=== PATIENT | female | born 1985 | race Caucasian/White ===

== ENCOUNTER 2020-01-30 07:48 | Outpatient (CLI) | payer BC, SELFPAY | END 2020-01-30 07:49 | disposition home or self-care (01) | LOC: LAB 07:52 | PROVIDERS: Family Provider Family Medicine; Visit Provider Family Medicine | DX: O26.851 Spotting complicating pregnancy, first trimester (principal) | CPT/HCPCS: 84702 ==

== ENCOUNTER 2020-10-29 18:33 | Emergency (ER) | payer BC, SELFPAY ==
--- NOTE | 2020-10-29 18:43 | XRR_ITS ---
PROCEDURE INFORMATION: Exam: XR Right Hand Exam date and time: 10/29/2020 6:43 PM Age: 35 years old Clinical indication: Injury or trauma; Other: Sport injury; Blunt trauma (contusions or hematomas); Right; Little finger; Injury details: PT was hit with a ball; Additional info: Hand/ 5th digit injury TECHNIQUE: Imaging protocol: XR Right hand. Views: 3 or more views. COMPARISON: No relevant prior studies available. FINDINGS: Bones/joints: There is posterior dislocation right 5th PIP. No fracture is identified. Soft tissues: Mild swelling XR/XR hand RT min 3V* [id number] IMPRESSION: Posterior dislocation right 5th PIP
[2020-10-29 18:55] VITALS: BP 118/74; PULSE 66; RESP 16; TEMP 36.9; O2SAT 97; BMI 31.1
--- NOTE | 2020-10-29 20:13 | W.ED.EXTPRO ---
HPI - Extremity Problem General: Chief complaint: Extremity Injury, Upper Stated complaint: Right Pinky Finger Broken Time Seen by Provider: 10/29/20 20:13 History of Present Illness: HPI Narrative: Patient is a 35-year-old female comes to the ED with right hand injury. Injury occurred just prior to arrival. She was catching a soccer ball and jammed her fifth digit. She reports a deformity but had finger splinted before coming to the ED. Associated symptoms: Deny chest pain, fever(s) or rash Review of Systems Const: Denies: fever(s), chills or fatigue Eyes: Denies: change in vision or eye discomfort ENMT: Denies: throat pain, odynophagia, nasal discharge or nasal congestion Card: Denies: chest pain, palpitations, edema, swelling of feet/ankles, dyspnea on exertion or orthopnea Resp: Denies: dyspnea, productive cough or non-productive cough GI: Denies: abdominal pain, nausea, vomiting, diarrhea, constipation or hematochezia : Denies: flank pain, dysuria or hematuria Musc: Reports: extremity pain (Right hand fifth digit) and deformity (Right hand fifth digit-PIP joint dislocation); Denies: neck pain, back pain or extremity swelling Skin/Breast: Denies: rash or new lesions Neuro: Denies: headache(s), numbness in extremities or weakness in extremities [facility] ED Female Reproductive History: Date of last menstrual period: 10/02/20 Physical Exam Const: COMMON NORMALS: no acute distress, patient oriented x3, healthy appearing and alert HENMT: COMMON NORMALS: normocephalic HEAD & SCALP: normocephalic MOUTH: Normal oral and palatal mucosa present THROAT: posterior oropharynx normal and uvula midline Neck/C-Spine: COMMON NORMALS: supple GENERAL: Yes normal visual inspection Resp: COMMON NORMALS: normal respiratory effort, No retractions, No use of accessory muscles and clear to auscultation bilaterally AUSCULTATION: clear to auscultation bilaterally Cardio: COMMON NORMALS: regular rate, regular rhythm, S1 normal heart sound present, S2 normal heart sound present, No gallops present (Cardio), No clicks present (Cardio), No murmurs present (Cardio) and Peripheral pulses 2+ throughout RATE: regular rate RHYTHM: regular rhythm HEART SOUNDS: S1 normal heart sound present and S2 normal heart sound present PERIPHERAL PULSES: Peripheral pulses 2+ throughout GI: COMMON NORMALS: Normal to inspection, nondistended, normoactive bowel sounds present, Soft to palpation, non-tender and no masses PALPATION: Yes Soft to palpation : COMMON NORMALS: Yes no CVA tenderness BLADDER/KIDNEY EXAM: Yes no CVA tenderness Back/Pelvis: COMMON NORMALS: no CVA tenderness Extremity: RIGHT UPPER EXTREMITY: Yes hand & digits Right hand and digits: Yes inspection (Visible PIP joint deformity of fifth digit.), Yes palpation (Tender to palpation-left digit), Yes ROM exam (Fifth digit-limited due to pain) and Yes neurovascular exam (intact) Neuro: COMMON NORMALS: patient oriented x3 and moves all extremities SENSORIUM/ORIENTATION: Yes alert Skin: GENERAL SKIN EXAM: dry skin Procedures Nerve Block Nerve Block 1: Time out performed: Yes Local Anesthetic: lidocaine 2% Amount of anesthesia used (mL): 10 Side: right Nerve Blocks: digital (5th digit) Procedure Successful: Yes Patient Tolerated Procedure: well Complications: none Orthopedic Joint Reduction Joint #1: Time Out Performed: Yes Side: right Joint Reduction Location: finger (5th digit-posterior PIP joint displacement) Analgesia: nerve block (with lidocaine 2%) Technique used: traction/counter-traction Post-reduction neuro exam: intact Post-reduction vascular: intact Post Reduction X-Ray Obtained: Yes Post Reduction X-Ray Results: reduced Splint Applied: Yes Patient Tolerated Procedure: well Course Vital Signs: Vital signs: Vital Signs Temperature 98.5 F 10/29/20 21:37 Pulse Rate 62 10/29/20 21:37 Respiratory Rate 16 10/29/20 21:37 Blood Pressure 134/68 10/29/20 21:37 Pulse Oximetry 97 10/29/20 21:37 MDM - Extremity (Nontraumatic) MDM Narrative: Medical decision making narrative: Patient is a 35-year-old female comes to the ED with a dislocated right fifth digit at the PIP joint. X-ray confirmed dislocation of the right fifth PIP joint. Lidocaine 2% was used as nerve block on fifth digit and then dislocation was reduced successfully and post reduction x-rays were performed and it showed a successful reduction.'s finger splint was applied on patient. She was told to follow-up with her PCP at her next scheduled appointment in 2 weeks. She was told to continue wearing her finger splint and limit activity with left hand until she sees her PCP for reevaluation. Return to ED precautions given. Patient understood and agree with plan. Imaging Data^: Xray Ortho: Attestation: I personally reviewed and interpreted this imaging study as follows: Radiologist's impression: Hasmukh Naik[address] [facility].[place], [place] [address]BXyx ReportSigned Patient: Lora Hawk #: [id number]: 1985Acct#:[id number]/Sex: 35 / FADM Date: 10/29/20Loc: ERRoom/Bed:Attending Dr: Ordering Provider/Ordering MD: Red Bajwa Date of Service: 10/29/20 Procedure(s): XR hand RT min 3V* [id number] Accession Number(s): [id number] Report Number: [id number] PROCEDURE INFORMATION: Exam: XR Right Hand Exam date and time: 10/29/2020 6:43 PM Age: 35 years old Clinical indication: Injury or trauma; Other: Sport injury; Blunt trauma (contusions or hematomas); Right; Little finger; Injury details: PT was hit with a ball; Additional info: Hand/ 5th digit injury TECHNIQUE: Imaging protocol: XR Right hand. Views: 3 or more views. COMPARISON: No relevant prior studies available. FINDINGS: Bones/joints: There is posterior dislocation right 5th PIP. No fracture is identified. Soft tissues: Mild swelling XR/XR hand RT min 3V* [id number] IMPRESSION: Posterior dislocation right 5th PIP Dictated By:Ismael Solomonigned By:Yolis Solomon Date/Time:10/29/203DD/ 21 Discharge Plan Discharge Patient Disposition: Home Clinical Impression: Dislocation of finger PIP joint Qualifiers: Encounter type: initial encounter Qualified Code(s): S63.289A - Dislocation of proximal interphalangeal joint of unspecified finger, initial encounter Condition: Stable Discharge Orders: Discharge ED (Routine); Ordered 10/29/20 Ordered By: Red Bajwa Discharge Diet: Regular Discharge Activity: Limit activity as instructed Patient Instructions: Finger Dislocation (ED) Activity Restrictions/Additional Instructions: Follow-up with medical provider at your next scheduled appointment in a couple weeks. Wear finger splint until evaluated by your PCP. Take [id number] Tylenol or Motrin for pain. Return to the ER or your medical provider if condition worsens. Please read and understand discharge instructions. Thank you for choosing [facility] for your healthcare needs today. Please realize this is an emergency room and that we are providing you with a medical screening exam and this may not be complete and all inclusive of all the testing and or work up that you may need to determine your ailment or severity of your illness. It is very important that you follow up as instructed or that you return to the Emergency Department should you have concerns or if your condition changes or worsens in any way. Coding Level of Care Code ED Tumbler Operator for Funmilayo Soria Exam Comprehensive
[2020-10-29 20:17] VITALS: BP 134/68; PULSE 62; RESP 16; TEMP 36.9; O2SAT 97
--- NOTE | 2020-10-29 20:33 | XRR_ITS ---
PROCEDURE INFORMATION: Exam: XR Right Hand Exam date and time: 10/29/2020 8:33 PM Age: 35 years old Clinical indication: Pain; Hand; Right; Additional info: Post reduction TECHNIQUE: Imaging protocol: XR Right hand. Views: 1 or 2 views. COMPARISON: CR (UP EXM, ) 10/29/2020 6:51 PM FINDINGS: Bones/joints: Normal. Previously noted dislocation has been reduced Soft tissues: Normal. XR/XR hand RT 2V [id number] IMPRESSION: No acute findings.
[2020-10-29 21:37] VITALS: BP 134/68; PULSE 62; RESP 16; TEMP 36.9; O2SAT 97
== END 2020-10-29 21:31 | disposition home or self-care (01) ==
PROVIDERS: Emergency Provider Physician Assistant
DX: S63.289A Dislocation of proximal interphalangeal joint of unspecified finger, initial encounter (principal); W21.02XA Struck by soccer ball, initial encounter
CPT/HCPCS: 26770; 73120; 73130; 99282

== ENCOUNTER 2021-09-03 10:38 | Emergency (ER) | payer BC, SELFPAY ==
[2021-09-03 10:50] VITALS: BP 133/76; PULSE 97; RESP 18; TEMP 36.7; O2SAT 100; BMI 31.1
--- NOTE | 2021-09-03 10:58 | US_ITS ---
WS: [id number] EARLY OBSTETRICAL ULTRASOUND (<14 WEEKS). HISTORY: vaginal bleeding COMPARISON: None available. Transvaginal imaging is performed. There is mildly thickened appearance of the endometrium with a sma ll cystic area in the central canal. If this is a gestational sac the measurement corresponds to a ge station of 5 weeks and 3 days. No cardiac activity identified. There is a tiny soft tissue focus with in the fluid which could be an early crown-rump length. Cervix is closed. No free fluid. The LEFT ovary measures 3.0 x 2.3 x 1.8 cm. RIGHT ovary measures 2.9 x 1.6 x 2.5 cm. No adnexal mass otherwise. US/US OB <=14 wk fetus w transvag IMPRESSION: 1. Mild endometrial thickening with a small fluid collection along the endomet rial canal which could potentially represent a very early intrauterine gestatio n. At this time cannot confirm intrauterine gestation. Recommend 7-10 day trans vaginal ultrasound follow-up. 2. No adnexal mass or free fluid. 3. If there is a positive beta hCG ectopic cannot be excluded.
--- NOTE | 2021-09-03 11:10 | ED_ITS ---
HPI - General Adult General: Chief complaint: Vaginal Bleeding Stated complaint: 7 weeks abd pian/bleeding Time Seen by Provider: 09/03/21 10:57 History of Present Illness: Patient is a 36-year-old female at 7 weeks and 3 days by ultrasound on 08/27/2021 presenting to the emergency with complaints of persistent vaginal bleeding and dysuria symptom with flank pain. Patient tells me that since 08/21, she has been having vaginal spotting has now worsened. On 08/27/2021, patient had a viable . At that time, patient was also diagnosed with urinary tract infection. Patient has been taking Keflex twice daily for 5 days now. Patient now reports bilateral flank pain but denies any nausea/vomiting fever/chills. Patient denies any abdominal complaints, pelvic contractions, cough, runny nose, or sore throat. Onset:08/21/2021 Duration:ongoing Location:home Severity:moderate Associated symptoms: Deny chest pain, dyspnea, nausea, rash, palpitations or vomiting Review of Systems Const: Denies: fever(s) or chills Eyes: Denies: change in vision ENMT: Denies: mouth pain Card: Denies: chest pain or palpitations Resp: Denies: dyspnea or non-productive cough GI: Denies: abdominal pain, nausea, vomiting or diarrhea : Reports: flank pain (+b/l flank pain), dysuria and other (+vaginal bleeding) Musc: Denies: extremity pain Skin/Breast: Denies: rash or new lesions Neuro: Denies: weakness in extremities Psych: Reports: other (Normal mood) Shaq/Lymph: Denies: easy bruising PFSH ED PFSH: Medical History Social History Smoking and tobacco status: never smoked Alcohol intake: never Substance/Drug Use: never Female Reproductive History: Date of last menstrual period: 10/02/20 Physical Exam Const: COMMON NORMALS: alert HENMT: COMMON NORMALS: atraumatic HEAD & SCALP: atraumatic MOUTH: moist mucous membranes not abnormal Eye: COMMON NORMALS: EOMs intact bilaterally and conjunctivae normal CONJUNCTIVA: Yes conjunctivae normal Neck/C-Spine: COMMON NORMALS: full ROM and supple Resp: COMMON NORMALS: normal respiratory effort and clear to auscultation bilaterally AUSCULTATION: clear to auscultation bilaterally Cardio: COMMON NORMALS: regular rate RATE: regular rate GI: COMMON NORMALS: Soft to palpation and non-tender PALPATION: Yes Soft to palpation OTHER: No focal TTP. NO guarding rebound, guarding, rigidity. No CVA tenderness to percussion. Neg Cline/Neg McBurney's point tenderness, no suprabupic tenderness to palpation. Extremity: COMMON NORMALS: full ROM Neuro: SENSORIUM/ORIENTATION: Yes alert MOTOR EXAM: No Abnormal motor st rength present and Other motor observations present (no focal motor deficits) Psych: COMMON NORMALS: speech normal SPEECH: Yes normal speech MOOD & AFFECT: Yes euthymic mood Course Vital Signs: Vital signs: Vital Signs Temperature 98.1 F 09/03/21 10:50 Pulse Rate 97 09/03/21 10:50 Respiratory Rate 18 09/03/21 10:50 Blood Pressure 133/76 09/03/21 10:50 Pulse Oximetry 100 09/03/21 10:50 MDM - General Adult Medical Decision Making 36-year-old female at 7 weeks and 3 days presenting to the emergency room for evaluation of vaginal bleeding and dysuria with bilateral flank pain. On exam, patient is hemodynamically stable, afebrile. Patient has no CVA tender ness bilaterally. No suprapubic tenderness. Beta-hCG of 1800. Ultrasound showed early at this time with recommendation for close follow-up in 7 to 10 days. In the setting of vaginal bleeding, this is likely threatened miscarriage. UA is negative for any signs of UTI. Do not suspect pyelonephritis given negative urine, patient is afebrile, no leukocytosis currently. Rx: tylenol PRN pain Disposition: Discharge. Patient counseled regarding diagnostic impression, treatment plan. Patient given ED strict return precautions to return for continuation, worsening, or development of new symptoms. Instructed to f/u w/ OB regarding symptoms today. Patient verbalized understanding. Lab Data : 09/03/21 11:18 09/03/21 11:18 Radiology Impressions Obstetrics Ultrasound 09/03/21 10:58 IMPRESSION: 1. Mild endometrial thickening with a small fluid collection along the endometrial canal which could potentially represent a very early intrauterine gestation. At this time cannot confirm intrauterine gestation. Recommend 7-10 day transvaginal ultrasound follow-up. 2. No adnexal mass or free fluid. 3. If there is a positive beta hCG ectopic cannot be excluded. Laboratory Results WBC 8.1 10^3/uL (4.0-10.0) 09/03/21 11:18 RBC 5.03 10^6/uL (4.1-5.3) 09/03/21 11:18 Hgb 15.0 g/dL (11.5-15.3) 09/03/21 11:18 Hct 44.0 % (37.0-47.0) 09/03/21 11:18 MCV 87.5 fl (81-99) 09/03/21 11:18 MCH 29.8 pg (28.0-34.0) 09/03/21 11:18 MCHC 34.1 g/dL (30.0-36.0) 09/03/21 11:18 RDW 11.8 % (12.1-15.1) L 09/03/21 11:18 Plt Count 211 10^3/cmm (130-400) 09/03/21 11:18 MPV 9.9 fL (7.4-10.4) 09/03/21 11:18 Neut % (Auto) 73.3 % 09/03/21 11:18 Lymph % (Auto) 19.4 % 09/03/21 11:18 [place]ock[place] % (Auto) 5.8 % 09/03/21 11:18 Eos % (Auto) 0.6 % 09/03/21 11:18 Baso % (Auto) 0.2 % 09/03/21 11:18 Neut # (Auto) 5.89 10^3/uL (1.8-7.7) 09/03/21 11:18 Lymph # (Auto) 1.6 10^3/uL (0.8-4.8) 09/03/21 11:18 [place] # (Auto) 0.5 10^3/uL (0.2-0.9) 09/03/21 11:18 Eos # (Auto) 0.1 10^3/uL (0.0-0.8) 09/03/21 11:18 Baso # (Auto) 0.0 10^3/uL (0.0-0.1) 09/03/21 11:18 Nucleated RBC % (auto) 0 % 09/03/21 11:18 Nucleated RBCs # 0.0 /100WBC 09/03/21 11:18 Sodium 138 mmol/L (136-145) 09/03/21 11:18 Potassium 3.8 mmol/L (3.5-5.1) 09/03/21 11:18 Chloride 100 mmol/L (98-107) 09/03/21 11:18 Carbon Dioxide 25 mmol/L (22-29) 09/03/21 11:18 Anion Gap 16.8 (5-19) 09/03/21 11:18 BUN 13 mg/dL (6-20) 09/03/21 11:18 Creatinine 0.7 mg/dL (0.5-0.9) 09/03/21 11:18 GFR Calculation 95.2 mL/min (90-130) 09/03/21 11:18 Glucose 89 mg/dL (65-115) 09/03/21 11:18 Calculated Osmolality 286 mOsm/kg (285-295) 09/03/21 11:18 Calcium 9.5 mg/dL (8.5-10.5) 09/03/21 11:18 Total Bilirubin 0.8 mg/dL (0.15-1.2) 09/03/21 11:18 AST 13 U/L (0-32) 09/03/21 11:18 ALT 17 U/L (0-33) 09/03/21 11:18 Alkaline Phosphatase 72 IU/L (35-105) 09/03/21 11:18 Total Protein 7.6 g/dL (6.6-8.7) 09/03/21 11:18 Albumin 4.6 g/dL (3.5-5.2) 09/03/21 11:18 Globulin 3.0 g/dL (1.3-4.6) 09/03/21 11:18 Lipase 21 U/L (13-60) 09/03/21 11:18 Ser , Semi-Qnt 1805.00 mIU/mL 09/03/21 11:18 Urine Color Regina (Yellow) 09/03/21 11:24 Urine Appearance Turbid (CLEAR) 09/03/21 11:24 Urine pH 6 (5-7) 09/03/21 11:24 Ur Specific [place] 1.010 (1.005-1.030) 09/03/21 11:24 Urine Protein Trace (Negative) 09/03/21 11:24 Urine Glucose (UA) Norm (Normal) 09/03/21 11:24 Urine Ketones Negative (Negative) 09/03/21 11:24 Urine Blood 3+ (Negative) H 09/03/21 11:24 Urine Nitrate Negative (Negative) 09/03/21 11:24 Urine Bilirubin Neg (Negative) 09/03/21 11:24 Urine Urobilinogen Norm mg/dL (Negative) 09/03/21 11:24 Ur Leukocyte Esterase Trace (Negative) H 09/03/21 11:24 Urine RBC Too numerous to cnt /hpf (0-2) H 09/03/21 11:24 Urine WBC 0-4 /hpf (0-5) H 09/03/21 11:24 Ur Squamous Epith Cells 5-10 /hpf (0-5) H 09/03/21 11:24 Amorphous Sediment Not Reportable 09/03/21 11:24 Urine Bacteria None /hpf (NONE) 09/03/21 11:24 Blood Type O Positive 09/03/21 11:18 Rho(D) Type Positive 09/03/21 11:18 Imaging Data Other Imaging: Radiologist's impression: [place] [address] Ultrasound Report Signed Patient: Chicho Hawk Unit #: [id number] : 1985 Age/Sex: 36 / F ADM Date: 09/03/21 Loc: ER Room/Bed: Attending Dr: Ordering Provider/Ordering MD: Cassy Tello MD Date of Service: 09/03/21 Procedure(s): US OB <=14 wk fetus w transvag Accession Number(s): [id number] Report Number: [id number] WS: [id number] ?EARLY OBSTETRICAL ULTRASOUND (<14 WEEKS). HISTORY: vaginal bleeding COMPARISON: None available. Transvaginal imaging is performed. There is mildly thickened appearance of the e ndometrium with a small cystic area in the central canal. If this is a gestational sac the measurement corresponds to a gestation of 5 weeks and 3 days. No cardiac activity identified. There is a tiny soft tissue focus within the fluid which could be an early crown-rump length. Cervix is closed. No free fluid. The LEFT ovary measures 3.0 x 2.3 x 1.8 cm. RIGHT ovary measures 2.9 x 1.6 x 2.5 cm. No adnexal mass otherwise. US/US OB <=14 wk fetus w transvag IMPRESSION: ? 1.? Mild endometrial thickening with a small fluid collection along the endometrial canal which could potentially represent a very early intrauterine gestation. At this time cannot confirm intrauterine gestation. Recommend 7-10 day transvaginal ultrasound follow-up. 2.? No adnexal mass or free fluid. 3.? If there is a positive beta hCG ectopic cannot be excluded. ? Dictated By: Berenice Nuñez DO Signed By: Berenice Nuñez DO Signed Date/Time: 09/03/21 1241 DD/ 1238 Discharge Plan Discharge Patient Disposition: Home Clinical Impression: Vaginal bleeding, Miscarriage, threatened, early Prescriptions: New acetaminophen 500 mg tablet 500 mg PO Q6H PRN (Reason: pain) 5 Days Qty: 20 0RF No Action cephalexin 500 mg capsule 500 mg PO TID 0RF Discharge Orders: Discharge ED (Routine); Ordered 09/03/21 Ordered By: Cassy Tello Discharge Diet: Advance as tolerated Discharge Activity: Increase activity as tolerated Activity Restrictions/Additional Instructions: Please follow-up with your OB doctor for further assessment of vaginal bleeding. Kmak to the emergency room for any new concerning complaints. Here's your US report: [address] [address] Ultrasound Report Signed Patient: Chicho Hawk Unit #: [id number] : 1985 Age/Sex: 36 / F ADM Date: 09/03/21 Loc: ER Room/Bed: Attending Dr: Ordering Provider/Ordering MD: Cassy Tello MD Date of Service: 09/03/21 Procedure(s): US OB <=14 wk fetus w transvag Accession Number(s): [id number] Report Number: [id number] WS: [id number] ?EARLY OBSTETRICAL ULTRASOUND (<14 WEEKS). HISTORY: vaginal bleeding COMPARISON: None available. Transvaginal imaging is performed. There is mildly thickened appearance of the endometrium with a small cystic area in the central canal. If this is a gestational sac the measurement corresponds to a gestation of 5 weeks and 3 days. No cardiac activity identified. There is a tiny soft tissue focus within the fluid which could be an early crown-rump length. Cervix is closed. No free fluid. The LEFT ovary measures 3.0 x 2.3 x 1.8 cm. RIGHT ovary measures 2.9 x 1.6 x 2.5 cm. No adnexal mass otherwise. US/US OB <=14 wk fetus w transvag IMPRESSION: ? 1.? Mild endometrial thickening with a small fluid collection along the endometrial canal which could potentially represent a very early intrauterine gestation. At this time cannot confirm intrauterine gestation. Recommend 7-10 day transvaginal ultrasound follow-up. 2.? No adnexal mass or free fluid. 3.? If there is a positive beta hCG ectopic cannot be excluded. ? Dictated By: Berenice Nuñez DO Signed By: Berenice Nuñez DO Signed Date/Time: 09/03/21 1241 DD/ 1238 Coding Level of Care Code ED Watch Repair Technician for Chg Fwd Exam Comprehensive
[2021-09-03 11:29] LABS: Basophils % 0.2 %; Eosinophils # 0.1 10^3/uL (0.0-0.8); Eosinophils % 0.6 %; Lymphocytes # 1.6 10^3/uL (0.8-4.8); Lymphocytes % 19.4 %; Mean Corpuscular HGB Conc 34.1 g/dL (30.0-36.0); Mean Corpuscular Hemoglobin 29.8 pg (28.0-34.0); Mean Corpuscular Volume 87.5 fl (81-99); Mean Platelet Volume 9.9 fL (7.4-10.4); Monocytes # 0.5 10^3/uL (0.2-0.9); Monocytes % 5.8 %; Neutrophils # 5.89 10^3/uL (1.8-7.7); Neutrophils % 73.3 %; Nucleated Red Blood Cells % 0 %; Platelet Count 211 10^3/cmm (130-400); Red Blood Count 5.03 10^6/uL (4.1-5.3); Red Cell Distribution Width 11.8 % (12.1-15.1); White Blood Count 8.1 10^3/uL (4.0-10.0)
[2021-09-03 12:27] LABS: Alanine Aminotransferase 17 U/L (0-33); Albumin Level 4.6 g/dL (3.5-5.2); Alkaline Phosphatase 72 IU/L (35-105); Anion Gap 16.8 (5-19); Aspartate Amino Transferase 13 U/L (0-32); Blood Urea Nitrogen 13 mg/dL (6-20); Calcium 9.5 mg/dL (8.5-10.5); Carbon Dioxide 25 mmol/L (22-29); Chloride 100 mmol/L (98-107); Glomerular Filtration Rate 95.2 mL/min (90-130); Glucose 89 mg/dL (65-115); Lipase 21 U/L (13-60); Osmolality Calculated 286 mOsm/kg (285-295); Potassium 3.8 mmol/L (3.5-5.1); Sodium 138 mmol/L (136-145); Total Bilirubin 0.8 mg/dL (0.15-1.2); Total Protein 7.6 g/dL (6.6-8.7)
[2021-09-03 12:28] LABS: Bilirubin Urine Neg (Negative); Blood Urine 3+ (Negative); Glucose Urine UA Norm (Normal); Ketones Urine Negative (Negative); Leukocyte Esterase Urine Trace (Negative); Nitrate Urine Negative (Negative); Protein Urine Trace (Negative); Urine Appearance Turbid (CLEAR); Urine Color Amber (Yellow); Urobilinogen Urine Norm (Negative); pH Urine 6 (5-7)
[2021-09-03 12:29] LABS: Add Urine Culture? No; Add Urine Microscopic? YES; RBC Urine TOO NUMEROUS TO CNT /hpf (0-2); WBC Urine 0-4 /hpf (0-5)
[2021-09-03 12:59] VITALS: BP 129/85; PULSE 85; RESP 18; O2SAT 99
== END 2021-09-03 13:08 | disposition home or self-care (01) ==
PROVIDERS: Emergency Provider Emergency Medicine
DX: O20.0 Threatened abortion (principal); Z3A.01 Less than 8 weeks gestation of pregnancy
CPT/HCPCS: 76801; 76817; 80053; 81001; 83690; 84702; 85025; 86900; 99284